=== PATIENT | male | born 1980 | race Caucasian/White ===

== ENCOUNTER 2016-04-18 02:23 | Emergency (ER) | payer MEDICAID ==
[2016-04-18 02:34] VITALS: TEMP 98.1
--- NOTE | 2016-04-18 04:29 | EDPHY ---
H & P Stated Complaint: LLE pain and swelling and lateral redness, Hx of DVTs Time Seen by Provider: 04/18/16 02:26 HPI/ROS: HPI The patient presents brought in by ambulance from a restaurant with left leg pain. He had been walking a lot over the last 2 days and has had left-sided leg pain which is achy, moderate in severity, worse with ambulation associated with swelling and redness of his leg. He has a history of antiphospholipid syndrome per his report and was diagnosed with a DVT on April 01. He is currently taking Eliquis and is still on Lovenox as well for this. He is followed at [facility] and was seen 1 since his discharge. He does not have any fevers or chills. He does not have any shortness of breath or chest pain. REVIEW OF SYSTEMS Constitutional: No fever, no chills. Eyes: No discharge. ENT: No sore throat. Cardiovascular: No chest pain, no palpitations. Respiratory: No cough, no shortness of breath. Gastrointestinal: No abdominal pain, no vomiting. Genitourinary: No hematuria. Musculoskeletal: No back pain. Skin: No rashes. Neurological: No headache. PMHx: Currently being treated for a left leg DVT, history of antiphospholipid syndrome Soc Hx: Lives in [place] PHYSICAL General Appearance: Alert, no distress Eyes: Pupils equal and round no pallor or injection ENT, Mouth: Mucous membranes moist Respiratory: There are no retractions, lungs are clear to auscultation Cardiovascular: Regular rate and rhythm Gastrointestinal: Abdomen is soft and non-tender, no masses, bowel sounds normal Neurological: A&O, moves all extremities Skin: Warm and dry, no rashes Musculoskeletal: Neck is supple non tender Extremities: Left leg is edematous and slightly erythematous with full range of motion at knee and ankle, 2+ DP pulses Psychiatric: Patient is oriented X 3, there is no agitation Source: Patient Exam Limitations: No limitations - Personal History Current Tetanus/Diphtheria Vaccine: Yes Current Tetanus Diphtheria and Acellular Pertussis (TDAP): Yes - Medical/Surgical History Hx Asthma: No Hx Chronic Respiratory Disease: No Hx Diabetes: No Hx Cardiac Disease: Yes Hx Renal Disease: No Hx Cirrhosis: No Hx Alcoholism: Yes Hx HIV/AIDS: No Hx Splenectomy or Spleen Trauma: No Other PMH: PMH: anti-phospholid antibody syndrome, depression. opiate abuse, DVTs, cellulitis. psh:none - Social History Smoking Status: Never smoked Constitutional: Initial Vital Signs Temperature (C) 36.7 C 04/18/16 02:32 Heart Rate 120 H 04/18/16 02:32 Respiratory Rate 22 H 04/18/16 02:32 Blood Pressure 145/91 H 04/18/16 02:32 O2 Sat (%) 96 04/18/16 02:32 O2 Delivery Mode Room Air Allergies/Adverse Reactions: Penicillins Allergy (Severe, Verified 04/01/16 05:10) Swelling/neck,face,throat Home Medications: Medication Instructions Recorded Apixaban [Eliquis] 5 mg PO BID #60 tablet 04/01/16 Apixaban [Eliquis] 10 mg PO BID #28 tablet 04/01/16 Cephalexin [Keflex (*)] 500 mg PO Q6H #28 cap 04/18/16 Lovenox 04/18/16 Medical Decision Making - Diagnostics Imaging: Left leg DVT study demonstrates persistent DVT to mid thigh, unchanged from prior ultrasound performed April 01, discussed with Dr. Deo Mercado of Radiology. ED Course/Re-evaluation: I met the paramedics at the patient's bedside to obtain report. He was given morphine 6 mg for pain. DVT study was obtained that demonstrated unchanged DVT in his left leg. He is likely symptomatic because of all the walking he has done in the last 2 days. Given that he is only been on treatment for about 2 weeks, I am not surprised that the clot is unchanged. He may have an overlying cellulitis and for this he was given a dose of Keflex with a prescription to go home with. I have asked him to follow up with his primary care doctor at [facility] for further care. If his DVT and symptoms do not improve in the next few weeks, he may need to change to a different anticoagulant. He was given crutches to help with ambulation, however is able to bear weight on the leg. Differential Diagnosis: This is a 35-year-old man with antiphospholipid syndrome, recent diagnosis of left lower extremity DVT currently on Eliquis and Lovenox who presents brought in by ambulance for left leg pain, worse over the last 2 days in the setting of frequent ambulation. Differential diagnosis includes symptomatic DVT, cellulitis, leg strain. - Data Points Medications Given: Discontinued Medications Acetaminophen/Hydrocodone Bitart ([place] 5/325mg Prepack#6) 1 btl TAKEHOME EDNOW ONE Stop: 04/18/16 04:35 Last Admin: 04/18/16 04:47 Dose: 1 btl Cephalexin HCl (Keflex) 500 mg PO EDNOW ONE PRN Reason: Protocol Stop: 04/18/16 04:36 Last Admin: 04/18/16 04:48 Dose: 500 mg Morphine Sulfate (Morphine) 6 mg IVP EDNOW ONE Stop: 04/18/16 02:42 Last Admin: 04/18/16 02:48 Dose: 6 mg Departure - Departure Disposition: Home, Routine, Self-Care Clinical Impression: Left leg DVT, Antiphospholipid antibody syndrome Condition: Fair Instructions: Hydrocodone/Acetaminophen (By mouth), Deep Venous Thrombosis (ED) Additional Instructions: Please follow-up with your doctor in 1-2 days. You will need to decide if you should continue on the Eliquis or switch to another medication. Please make sure to elevate your leg as much as you can. Referrals: RODRIGUEZ ANGELA [Primary Care Provider] - As per Instructions Prescriptions: Cephalexin [Keflex (*)] 500 mg PO Q6H #28 cap
[2016-04-18] MEDS ORDERED: HYDROCOD/APAP 5/325 PREPACK#6 BTL TAKEHOME ONE (04:34)
[2016-04-18] MEDS ORDERED: CEPHALEXIN 500 MG CAP PO ONE (04:35)
[2016-04-18 04:49] VITALS: BP 114/66; PULSE 110; RESP 18; O2SAT 96
--- NOTE | 2016-04-18 11:12 | US ---
Ultrasound Venous Doppler Study of the Left Lower Extremity History: Left leg pain and swelling in a 35 are old male with a history of left lower extremity deep vein thrombosis documented on the prior study April 01, 2016. Technique: High frequency transducer was used for imaging and Doppler study of the veins of the left lower extremity. Pulsed Doppler and color Doppler were utilized, along with various maneuvers to ass ess flow in the veins. Findings: Again demonstrated is intraluminal filling defect seen involving the femoral vein in the mi d thigh caudally into the popliteal vein consistent with persistent deep vein thrombosis unchanged fr om the prior study. Deep veins of the calf remain patent as do the proximal deep veins in the groin a nd upper thigh. Impression: Persistent left lower extremity deep vein thrombosis extending from the mid femoral vein into the popliteal vein. The study was performed as an emergency on-call case and discussed by telephone with Dr. Henry at 0 315 hours. The final interpretation is concordant with the original communication.
== END 2016-04-18 04:48 | disposition home or self-care (01) ==
LOC: EDUNIT#
DX: I82.402 Acute embolism and thrombosis of unspecified deep veins of left lower extremity (principal); D68.61 Antiphospholipid syndrome
CPT/HCPCS: 96374

== ENCOUNTER 2018-05-22 12:43 | Emergency (ER) | payer MEDICAID ==
--- NOTE | 2018-05-22 12:52 | EDPHY ---
H & P Stated Complaint: right hand/arm swelling since yest, hx bloot clots Time Seen by Provider: 05/22/18 12:50 HPI/ROS: CHIEF COMPLAINT: Right arm swelling HISTORY OF PRESENT ILLNESS: The patient is an anticoagulated 37 y/o male with a history of anti-phospholipid syndrome and prior LE DVT who complains of right arm and hand swelling worsening over the last day. He noticed mild soreness in his right forearm and along the dorsum of his right hand yesterday evening that he attributed to fatigue and soreness from using his hands at work. This morning he woke and was unable to close his hand completely. Swelling has continued to worsen during the day. There is also redness on both forearms that he is unsure how long it has been there. He denies recent new tattoos, arm trauma, recent surgery, or recent IV drug use. He takes Coumadin and last had his level checked on the . No shortness of breath, fever, chest pain. REVIEW OF SYSTEMS: A ten system review of systems was performed and is negative with the exception of the items mentioned in the HPI. Past medical history: 1. Anti phospholipid syndrome 2. Lower extremity DVT Past surgical history: No prior arm surgeries. Family history: Noncontributory Social history: Former IV drug user, sober currently. Nonsmoker. No alcohol use. Works at [employer]. 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 Prior medical records reviewed including admission 04/01/16 for DVT and ED visit 04/18/16 for DVT. General Appearance: Alert. Vital signs reviewed. Blood pressure 142/81 at triage. Eyes: Pupils equal and round, no conjunctival injection, no discharge. Anicteric. ENT, Mouth: Mucous membranes are moist, no oropharyngeal erythema or edema. Neck: No lymphadenopathy, supple. Respiratory: Lungs are clear to auscultation; no wheezes, rales, or rhonchi. Cardiovascular: Regular rate and rhythm; no murmur, rub, or gallop. Gastrointestinal: Abdomen is soft and nontender, no masses or organomegaly. Skin: Warm and dry. Back: Nontender to palpation over the thoracolumbar spine. No CVAT. Extremities: Extensive tattoos both arms. Right hand mildly diffusely swollen. Tenderness to dorsum of right hand and wrist. Circumference of right forearm 0.5 cm larger the the left arm. Reticular erythema extending to antecubital fossa bilaterally (erythema appears to almost follow the pattern of his tattoos- -the unmarked skin is slightly pink--tattoos cover much of both forearms). No associated warmth. No lower extremity edema, no calf tenderness or swelling. Pulses: 2+ bilateral radial pulses. Neurological: Alert and oriented. Moving all four extremities easily and equally. Sensation intact to light touch over both upper extremities. FAROM both shoulders, elbows, wrists, digits (flexion of right fingers slightly painful due to swelling). Psychiatric: Normal affect. - Personal History Current Tetanus/Diphtheria Vaccine: Yes - Medical/Surgical History Hx Asthma: No Hx Chronic Respiratory Disease: No Hx Diabetes: No Hx Cardiac Disease: No Hx Renal Disease: No Hx Cirrhosis: No Hx Alcoholism: No Hx HIV/AIDS: No Hx Splenectomy or Spleen Trauma: No Other PMH: dvt, pe, factor 5 - Social History Smoking Status: Former smoker Constitutional: Initial Vital Signs Temperature (C) 36.5 C 05/22/18 12:47 Heart Rate 65 05/22/18 12:47 Respiratory Rate 20 05/22/18 12:47 Blood Pressure 142/81 H 05/22/18 12:47 O2 Sat (%) 96 05/22/18 12:47 O2 Delivery Mode Room Air Allergies/Adverse Reactions: Penicillins Allergy (Severe, Verified 04/01/16 05:10) Swelling/neck,face,throat Home Medications: Medication Instructions Recorded Coumadin 05/22/18 Doxycycline Hyclate [Doxycycline] 100 mg PO BID #14 cap 05/22/18 Medical Decision Making - Diagnostics Imaging: Discussed imaging studies w/ banquet server on call Radiologist ED Course/Re-evaluation: This is a 37 y/o male with a history of anti-phospholipid syndrome and prior LE DVT who presents with worsening right arm swelling and pain over the last day. He also has bilateral forearm redness that is not warm or noticeably tender. He is neurovascularly intact and afebrile. Plan for INR check and bilateral upper extremity US to rule out DVT. INR 3.54. US is negative for DVT. 1418: Reevaluated patient and discussed findings. The diagnosis is not entirely clear but plan to treat as possible cellulitis, though the bilateral distribution and lack of warmth is not quite characteristic of this. He has not had any new tattoos, but the erythema is splotchy and appears to follow the pattern of his tattoos. Compartments are soft in both arms. His work involves using his hands, but this would be an unusual presentation of neuropathy, such as carpal tunnel. I have no reason to suspect regional pain syndrome. Plan to discharge with script for doxycycline and directions to elevate arms when possible over the next few days. Tylenol if needed for pain. Follow up instructions and return precautions discussed. He is comfortable with this plan. Differential Diagnosis: I considered a differential diagnosis that includes but is not limited to superficial thrombophlebitis, DVT, cellulitis, lymphedema, destiny pain syndrome , neuropathy,and compartment syndrome. - Data Points Laboratory Results: Laboratory Results 05/22/18 12:40 05/22/18 12:40 Departure - Departure Disposition: Home, Routine, Self-Care Clinical Impression: Arm swelling, possible cellulitis Condition: Good Instructions: Doxycycline (By mouth), Cellulitis (ED), Edema (ED) Additional Instructions: 1. Keep arms elevated on pillows as discussed as much as possible over the next few days. 2. Take Doxycycline as prescribed. Be sure to complete entire prescription even if symptoms have resolved. 3. Use Tylenol as directed on the packaging if needed for pain over the next few days. 4. Follow up with your primary care provider for unimproved symptoms over the next few days. 5. Return to the ED for dramatic increase in redness, swelling, or pain, or any other worsening of condition. Referrals: [facility],. [Clinic] - As per Instructions Stand Alone Forms: Work Excuse Prescriptions: Doxycycline Hyclate [Doxycycline] 100 mg PO BID #14 cap Report Scribed for: Edith Bearden Report Scribed by: Diana Kevin Date of Report: 05/22/18 Time of Report: 13:18 Physician Review and Approval Statement: 05/22/18 12:52 Portions of this note were transcribed by the medical housekeeper. I, Dr. Edith Bearden, personally performed the history, physical exam, and medical decision- making; and confirmed the accuracy of the information in the transcribed note.
[2018-05-22 13:12] LABS: PLATELET COUNT 208 10^3/uL (150-400)
[2018-05-22 13:46] LABS: INR 3.54 (0.83-1.16); PROTIME(PATIENT) 35.2 SEC (12.0-15.0)
[2018-05-22 14:45] VITALS: BP 138/78
== END 2018-05-22 14:48 | disposition home or self-care (01) ==
LOC: EDUNIT#
DX: M79.89 Other specified soft tissue disorders (principal); M79.631 Pain in right forearm; Z79.01 Long term (current) use of anticoagulants

== ENCOUNTER 2018-08-05 23:42 | Observation (INO) | payer MEDICAID ==
--- NOTE | 2018-08-05 23:55 | EDPHY ---
H & P Stated Complaint: cough, sinus congestion, SOB, and chest tightness Time Seen by Provider: 08/05/18 23:55 HPI/ROS: HPI CHIEF COMPLAINT: Cough, shortness of breath, wheezing. Productive cough with green sputum. HISTORY OF PRESENT ILLNESS: Patient is a 37-year-old male, he does have a history of antiphospholipid syndrome, history of PEs on Coumadin, he states he has been compliant with his Coumadin. Presents emergency room states he has been sick since Tuesday with increasing cough, congestion, wheezing. He endorses a productive cough with green sputum. Endorses wheezing. [place] more short of breath tonight and decided come the emergency room. Denies significant chest pain. Does complain of some chest tightness and cough. Denies hemoptysis, denies leg pain or leg swelling. Denies pleuritic pain. Past Medical History: History of PE with clotting disorder, antiphospholipid syndrome on Coumadin. Past Surgical History: Denies surgical history Social History: Denies drugs alcohol tobacco. Family History: Noncontributory ROS REVIEW OF SYSTEMS: 10 Systems were reviewed and negative with the exception of the elements mentioned in the history of present illness. Exam Constitutional triage nursing summary reviewed, vital signs reviewed, awake/ alert. Eyes normal conjunctivae and sclera, EOMI, PERRLA. HENT normal inspection, atraumatic, moist mucus membranes, no epistaxis, neck supple/ no meningismus, no raccoon eyes. Respiratory bronchitic sounding cough on exam, faint wheezing bilaterally. Cardiovascular rate normal, regular rhythm, no murmur, no edema, distal pulses normal. Gastrointestinal soft, non-tender, no rebound, no guarding, normal bowel sounds, no distension, no pulsatile mass. Genitourinary no CVA tenderness. Musculoskeletal no midline vertebral tenderness, full range of motion, no calf swelling, no tenderness of extremities, no meningismus, good pulses, neurovascularly intact. Skin pink, warm, & dry, no rash, skin atraumatic. Neurologic awake, alert and oriented x 3, AAOx3, moves all 4 extremities equally, motor intact, sensory intact, CN II-XII intact, normal cerebellar, normal vision, normal speech. Psychiatric normal mood/affect. Heme/Lymph/Immune no lymphadenopathy. Differential Diagnosis: Includes but is not limited to in a particular order bronchitis, viral pneumonia, bacterial pneumonia, PE, CHF, ACS Medical Decision Making: Plan for this patient IV establishment IV fluid bolus , DuoNeb breathing treatment, IV Solu-Medrol, basic labs, chest x-ray, EKG, troponin re-evaluate. Check D-dimer. Check coags. Re-evaluation: EKG interpretation by me on record in [employer] system. Impression time of EKG 0021, sinus rhythm rate of 92, no signs of acute ischemia. D-dimer negative. Troponin 0.00 Chest x-ray reviewed shows airway disease Patient re-evaluated 1:25 a.m. Continues to have wheezing, bronchitic sounding cough and feels short of breath. Plan for 2nd neb, IV fluids, already received IV Solu-Medrol, will send respiratory panel. Given the patient's wheezing and ongoing bronchitic cough plan for admission the hospital for further evaluation pulmonary care. Patient is been updated agrees for this. Hospalist service consulted; Admit to Dr. Melgar, Agrees to admit. Source: Patient - Personal History Current Tetanus/Diphtheria Vaccine: Yes Current Tetanus Diphtheria and Acellular Pertussis (TDAP): Yes - Medical/Surgical History Hx Asthma: No Hx Chronic Respiratory Disease: No Hx Diabetes: No Hx Cardiac Disease: No Hx Renal Disease: No Hx Cirrhosis: No Hx Alcoholism: No Hx HIV/AIDS: No Hx Splenectomy or Spleen Trauma: No Other PMH: dvt, pe, factor 5 - Social History Smoking Status: Former smoker Constitutional: Initial Vital Signs Temperature (C) 37.1 C 08/05/18 23:46 Heart Rate 107 H 08/05/18 23:46 Respiratory Rate 16 08/05/18 23:46 Blood Pressure 154/89 H 08/05/18 23:46 O2 Sat (%) 94 08/05/18 23:46 O2 Delivery Mode Room Air O2 (L/minute) 2 Allergies/Adverse Reactions: Penicillins Allergy (Severe, Verified 08/05/18 23:48) Swelling/neck,face,throat Home Medications: Medication Instructions Recorded Albuterol Sulfate [Proair Hfa] 8.5 gm IH QID PRN #1 hfa.aer.[id number] 08/06/18 Gabapentin [Neurontin 300 MG (*)] 300 mg PO DAILY 08/06/18 Gabapentin [Neurontin 300 MG (*)] 600 mg PO HS 05/05/19 Warfarin Sodium [Coumadin 7.5MG 7.5 mg PO DAILY16 #30 tab 08/06/18 (*)] predniSONE 40 mg PO DAILY #3 tablet 08/06/18 Medical Decision Making - Data Points Laboratory Results: Laboratory Results 08/06/18 00:20 08/06/18 00:20 Medications Given: Discontinued Medications Albuterol (Proventil Neb) 3 ml IH Q2HRS PRN PRN Reason: Short of Breath/Dyspnea Stop: 02/02/19 01:23 Last Admin: 08/06/18 01:37 Dose: 3 ml Albuterol/Ipratropium (Duoneb) 3 ml IH EDNOW ONE Stop: 08/06/18 00:00 Last Admin: 08/06/18 00:33 Dose: 3 ml Albuterol/Ipratropium (Duoneb) 3 ml IH EDNOW ONE Stop: 08/06/18 01:25 Last Admin: 08/06/18 01:42 Dose: Not Given Gabapentin (Neurontin) 600 mg PO ONCE ONE Stop: 08/06/18 06:05 Last Admin: 08/06/18 06:27 Dose: 600 mg Sodium Chloride (Ns) 1,000 mls @ 0 mls/hr IV EDNOW ONE; Wide Open PRN Reason: Protocol Stop: 08/06/18 00:00 Last Admin: 08/06/18 00:44 Dose: 1,000 mls Sodium Chloride (Ns) 1,000 mls @ 0 mls/hr IV ONCE ONE PRN Reason: Wide Open Stop: 08/06/18 00:00 Last Admin: 08/06/18 00:45 Dose: 1,000 mls Methylprednisolone Sodium Succinate (Solu-Medrol) 125 mg IVP EDNOW ONE Stop: 08/06/18 00:00 Last Admin: 08/06/18 00:45 Dose: 125 mg Prednisone (Prednisone) 40 mg PO DAILY MELLY Stop: 02/02/19 08:59 Last Admin: 08/06/18 08:39 Dose: 40 mg Point of Care Test Results: Chemistry 08/06/18 00:24 POC Troponin I 0.00 ng/mL ng/mL (0.00-0.08) Departure - Departure Disposition: [facility] Clinical Impression: Bronchitis Condition: Fair
[2018-08-05] MEDS ORDERED: IPRATROPIUM/ALBUTEROL 3 ML DEYVIAL IH ONE (23:59)
[2018-08-05] MEDS ORDERED: methylPREDNISolone SOD SUCC 125 MG/2 ML VIAL IVP ONE (23:59)
[2018-08-05] MEDS ORDERED: NS 1,000 ML IV ONE (23:59)
[2018-08-06] MEDS ORDERED: methylPREDNISolone SOD SUCC 125 MG/2 ML VIAL ONE (00:06)
[2018-08-06] MEDS ORDERED: IPRATROPIUM/ALBUTEROL 3 ML DEYVIAL ONE (00:06)
[2018-08-06 00:38] LABS: INR 1.82 (0.83-1.16); PROTIME(PATIENT) 20.2 SEC (12.0-15.0)
[2018-08-06] MEDS: NS 1,000 ML IV ONE (00:44)
[2018-08-06 00:49] LABS: PLATELET COUNT 231 10^3/uL (150-400)
[2018-08-06] MEDS ORDERED: IPRATROPIUM/ALBUTEROL 3 ML DEYVIAL IH ONE (01:24)
[2018-08-06] MEDS ORDERED: ONDANSETRON DISINTEGRATING 4 MG TAB PO PRN (01:24)
[2018-08-06] MEDS ORDERED: ALBUTEROL 3 ML DEYVIAL IH PRN (01:24)
[2018-08-06] MEDS ORDERED: ACETAMINOPHEN 325 MG TAB PO PRN (01:24)
[2018-08-06] MEDS ORDERED: ONDANSETRON 4 MG/2 ML VIAL IVP PRN (01:24)
--- NOTE | 2018-08-06 01:44 | PDGENHP ---
History and Physical - Chief Complaint Shortness of breath - History of Present Illness 37 yo M w/ hx of DVT presents with shortness of breath. The patient tells me he has had URI symptoms for about 5 days. He describes sore throat, congestion, cough, and progressive shortness of breath. Over the last 24 hours he has also developed difficulty breathing and wheezing, which is unusual for him. He has no history of asthma or COPD. He does smoke tobacco. In the ED his evaluation is mostly reassuring aside from rhonchi and mild wheezing on exam. His d-dimer was negative and he takes warfarin for treatment of DVT. Case discussed with ED physician Dr. Martin, records reviewed and summarized above. History Information - Allergies/Home Medication List Allergies/Adverse Reactions: Penicillins Allergy (Severe, Verified 08/05/18 23:48) Swelling/neck,face,throat Home Medications: Coumadin 05/22/18 [Last Taken Unknown] Gabapentin 08/05/18 [Last Taken Unknown] I have personally reviewed and updated: family history, medical history - Past Medical History Additional medical history: Antiphospholipid syndrome with history of recurrent DVTs and pulmonary emboli; possible bipolar disease; antisocial personality disorder; attention deficit disorder; polysubstance abuse with opiates and amphetamine dependency in the past - Surgical History Reports: no pertinent surgical hx - Family History Additional family history: Denies any family history of venous thromboembolism or asthma - Social History Smoking Status: Former smoker Additional social history: Reports he is currently living in [place], would like to get established with the [facility] Review of Systems Review of Systems: ROS: 10pt was reviewed & negative except for what was stated in HPI & below Physical Exam Physical Exam: Temp Pulse Resp BP Pulse Ox 37.1 C 92 20 116/73 97 08/05/18 23:46 08/06/18 01:39 08/06/18 01:39 08/06/18 01:39 08/06/18 01:39 O2 (L/minute) 2 Constitutional: obese, uncomfortable Eyes: PERRL, EOMI Ears, Nose, Mouth, Throat: moist mucous membranes, no oral mucosal ulcers Cardiovascular: regular rate and rhythym, no murmur, rub, or gallop Respiratory: no respiratory distress, expiratory wheeze, rhonchi Gastrointestinal: normoactive bowel sounds, soft, non-tender abdomen Skin: warm, normal color Musculoskeletal: full muscle strength, no muscle tenderness Neurologic: AAOx3, CN II-XII Intact Psychiatric: interacting appropriately, not anxious Lab Data & Imaging Review 08/06/18 00:20 08/06/18 00:20 WBC 10.82 10^3/uL (3.80-9.50) H 08/06/18 00:20 RBC 5.44 10^6/uL (4.40-6.38) 08/06/18 00:20 Hgb 15.8 g/dL (13.7-17.5) 08/06/18 00:20 Hct 43.5 % (40.0-51.0) 08/06/18 00:20 MCV 80.0 fL (81.5-99.8) L 08/06/18 00:20 MCH 29.0 pg (27.9-34.1) 08/06/18 00:20 MCHC 36.3 g/dL (32.4-36.7) 08/06/18 00:20 RDW 12.3 % (11.5-15.2) 08/06/18 00:20 Plt Count 231 10^3/uL (150-400) 08/06/18 00:20 MPV 9.7 fL (8.7-11.7) 08/06/18 00:20 Neut % (Auto) 72.7 % (39.3-74.2) 08/06/18 00:20 Lymph % (Auto) 18.7 % (15.0-45.0) 08/06/18 00:20 [place] % (Auto) 5.3 % (4.5-13.0) 08/06/18 00:20 Eos % (Auto) 2.5 % (0.6-7.6) 08/06/18 00:20 Baso % (Auto) 0.2 % (0.3-1.7) L 08/06/18 00:20 Nucleat RBC Rel Count 0.0 % (0.0-0.2) 08/06/18 00:20 Absolute Neuts (auto) 7.88 10^3/uL (1.70-6.50) H 08/06/18 00:20 Absolute Lymphs (auto) 2.02 10^3/uL (1.00-3.00) 08/06/18 00:20 Absolute Monos (auto) 0.57 10^3/uL (0.30-0.80) 08/06/18 00:20 Absolute Eos (auto) 0.27 10^3/uL (0.03-0.40) 08/06/18 00:20 Absolute Basos (auto) 0.02 10^3/uL (0.02-0.10) 08/06/18 00:20 Absolute Nucleated RBC 0.00 10^3/uL (0-0.01) 08/06/18 00:20 Immature Gran % 0.6 % (0.0-1.1) 08/06/18 00:20 Immature Gran # 0.06 10^3/uL (0.00-0.10) 08/06/18 00:20 PT 20.2 SEC (12.0-15.0) H 08/06/18 00:20 INR 1.82 (0.83-1.16) H 08/06/18 00:20 APTT 50.2 SEC (23.0-38.0) H 08/06/18 00:20 D-Dimer 0.39 ug/mLFEU (0.00-0.50) 08/06/18 00:20 Sodium 142 mEq/L (135-145) 08/06/18 00:20 Potassium 4.4 mEq/L (3.5-5.2) 08/06/18 00:20 Chloride 113 mEq/L (97-110) H 08/06/18 00:20 Carbon Dioxide 19 mEq/l (22-31) L 08/06/18 00:20 Anion Gap 10 mEq/L (6-14) 08/06/18 00:20 BUN 13 mg/dL (7-23) 08/06/18 00:20 Creatinine 0.8 mg/dL (0.7-1.3) 08/06/18 00:20 Estimated GFR > 60 08/06/18 00:20 Glucose 92 mg/dL (70-100) 08/06/18 00:20 Calcium 9.5 mg/dL (8.5-10.4) 08/06/18 00:20 POC Troponin I 0.00 ng/mL (0.00-0.08) 08/06/18 00:24 NT-Pro-B Natriuret Pep 81 pg/mL (0-125) 08/06/18 00:20 Visualized and Interpreted Chest x-ray results: Yes Chest X-Ray results: no infiltrate Visualized and Interpreted EKG results: Yes EKG Interpretation: Positive for: normal sinsus rhythm Assessment & Plan Assessment: 37 yo M presents with likely viral bronchitis. Plan: 1. Shortness of breath - Most likely viral URI noting 5 days of sore throat, cough, and progressive shortness of breath. New wheezing suggestive of reactive airways although patient does not have a prior history of asthma or COPD. CXR ( personally reviewed/interpreted) does not demonstrate consolidation. - Admit for observation - Respiratory PCR, procalcitonin ordered - Observe off of antibiotics - Prednisone 40 mg qD - Albuterol PRN 2. Hypoxia - Mild; requiring 2 L/min O2 via NC to maintain O2 sats>89%. - Continue O2 PRN - Incentive spirometry ordered 3. Hx DVT, PE - With possible hx of APLS. He is maintained on warfarin as an outpatient; INR 1.8 on admission but D-dimer negative. - Continue warfarin, pharmacy to dose - Monitor daily INR Diet - Regular Code - Full Ppx - warfarin Dispo - Admit under observation status
[2018-08-06] MEDS ORDERED: GABAPENTIN 300 MG CAP PO ONE (06:04)
[2018-08-06 07:49] LABS: PLATELET COUNT 194 10^3/uL (150-400)
--- NOTE | 2018-08-06 07:49 | CPEKG ---
Test Reason : OPEN Blood Pressure : / mmHG Vent. Rate : 092 BPM Atrial Rate : 093 BPM P-R Int : 122 ms QRS Dur : 083 ms QT Int : 344 ms P-R-T Axes : 031 034 023 degrees QTc Int : 426 ms Sinus rhythm Abnormal R-wave progression, early transition Confirmed by Jos Davis ([id number]) on 08/06/2018 7:48:51 AM Referred By: Jos Davis Confirmed By:Jos Davis
[2018-08-06 07:58] LABS: INR 1.79 (0.83-1.16)
[2018-08-06] MEDS ORDERED: predniSONE 20 MG TAB PO SCH (09:00)
[2018-08-06 11:33] VITALS: BP 136/71
--- NOTE | 2018-08-06 14:51 | PDDCSUM ---
Discharge Summary Discharge Summary: Diagnoses: Acute viral bronchitis Rhinovirus infection Antiphospholipid syndrome H/o PE/DVT Obesity Psychiatric disorders HOSPITAL COURSE: The pt is a 37yo M who was admitted for shortness of breath associated with acute bronchitis. He had been feeling ill for 5 days and had to miss work, as he works in food safety officer. In the hospital, he was found to have rhinovirus on nasal swab PCR. He was given supplemental O2, albuterol as needed for wheezing, and started on prednisone to help with bronchial inflammation. He was on warfarin for H/o DVT/PE and his INR was found to be subtherapeutic. He was recommended to continue taking warfarin and get his INR checked again in the outpatient setting. He was clinically stable and feeling better after 1 night in the hospital, so he was discharged to home in stable condition with recommendations to follow up with his PCP. Other tests:D-dimer negative. Procalcitonin negative. CXR: mild bronchitis. EKG - no ischemic changes. Follow up: PCP in 1 week. INR/Coumadin clinic within 3-5 days. Special instructions: Patient was instructed to drink plenty of fluids, get plenty of rest, and get plenty of good nutrition symptomatic relief. Additionally, the patient may take [id number] medicine such as dextromethorphan for cough suppression, acetaminophen for pain, and/or guaifenesin for congestion. Reminded patient to practice hand hygiene and to cover mouth if sneezing or coughing to prevent the spread of the infection. Medications: prednisone 40mg tab po daily x 3 days. Albuterol inhaler 1-2 puffs QID prn dyspnea/wheezing. Resume home meds.
--- NOTE | 2018-08-06 15:05 | ASDISCHSUM ---
Discharge Information Plan Status:Home with No Needs Medically Cleared to Leave:08/06/2018 Discharge Date:08/06/2018 02:35 PM CM D/C Disposition:Home, Routine, Self-Care ADT D/C Disposition:Home, Routine, Self-Care Projected Discharge Date:08/06/2018 02:35 PM Transportation at D/C: Discharge Delay Reason: Follow-Up Date:08/06/2018 02:35 PM Discharge Slot: Final Diagnosis: Placement Information Patient Contact Information Contact Name:CARLINE Relationship:Mother Address: Work Phone: City: [place] Phone: State/[place] Code: Email: Financial Information Financial Class:Medicaid Primary Plan Desc:MEDICAID HEALTH FIRST C[employer]OGRAPHIC AIDE Primary Plan Number:[id number] Secondary Plan Desc: Secondary Plan Number: Assessment Information LACE LACE Length of stay for Answers: Less than 1 day current admission Acuity / Level of Answers: No Care: Did the patient have an inpatient admission? Comorbidities - select Answers: Opioid dependence all that apply / Chronic pain Other Notes: DVT, # of Emergency department Answers: 1-2 visits in the last 6 months Social determinants Answers: History of substance abuse (ETOH, street drugs, prescription drugs, etc.) Mental health diagnosis (anxiety, depression, pers onality disorders, etc.) Score: 12 Date Signed: 08/06/2018 03:03 PM Electronically Signed By:Katelynn Haywood RN Intervention Information
== END 2018-08-06 14:35 | disposition home or self-care (01) ==
LOC: F2W 08-06 02:59
PROVIDERS: ADMIT Student in an Organized Health Care Education/Training Program; ATTEND Internal Medicine
DX: J40 Bronchitis, not specified as acute or chronic (principal); D68.61 Antiphospholipid syndrome; Z86.718 Personal history of other venous thrombosis and embolism; Z79.01 Long term (current) use of anticoagulants
CPT/HCPCS: 71045; 93005; 96361; 96374; 99285; G0378; 84484-ER; J2930; J7512; J7613